=== PATIENT | male | born 1975 | race Caucasian/White ===

== ENCOUNTER 2016-11-01 16:36 | Emergency (ER) | payer SELFPAY ==
[~2016-11-01] VITALS: Ht 170.2 cm; Wt 54.4 kg
[2016-11-01 16:40] VITALS: BP 113/70
[2016-11-01] MEDS ORDERED: IBUPROFEN 400 MG TABLET PO ONE (17:30)
[2016-11-01] MEDS ORDERED: IBUPROFEN 400 MG TABLET ONE (17:40)
== END 2016-11-01 18:45 | disposition home or self-care (01) ==
LOC: ER 16:38
DX: S76.312A Strain of muscle, fascia and tendon of the posterior muscle group at thigh level, left thigh, initial encounter (principal); Y04.0XXA Assault by unarmed brawl or fight, initial encounter; Y92.89 Other specified places as the place of occurrence of the external cause; Y93.89 Activity, other specified; Y99.8 Other external cause status
CPT/HCPCS: 29505; 73503; 73564; 99284; A4606; Z7610; 73502

== ENCOUNTER 2016-11-02 18:20 | Emergency (ER) | payer SELFPAY ==
[~2016-11-02] VITALS: Ht 170.2 cm; Wt 54.4 kg
--- NOTE | 2016-11-02 22:37 | NUR ---
BIBSELF AMBULATORY TO ER BED 9, C/O LEFT LEG PAIN SINCE YESTERDAY. WAS HERE YESTERDAY. PT AOX3 RR EVEN AND UNLABORED. NO SOB NOTD. NAD NOTED. NO NVD AT THIS TIME. PT NOT DIAPHORETIC. PT WITH LEFT KNEE IMMBOBLIZER. PT WAITING FOR MD JIMENEZ.
[2016-11-02] MEDS ORDERED: HYDROCODONE/APAP 10/325MG 1 EA TABLET ONE (22:56)
--- NOTE | 2016-11-02 22:58 | NUR ---
Patient discharged to home in stable condition. Written and verbal after care instructions given. Patient verbalizes understanding of instruction. Patient is ambulatory with steady gait, knee immobilizer on. No further complaints.
[2016-11-02 23:00] VITALS: BP 110/62
[2016-11-02] MEDS ORDERED: HYDROCODONE/APAP 10/325MG 1 EA TABLET PO ONE (23:00)
== END 2016-11-02 23:02 | disposition home or self-care (01) ==
LOC: ER 18:22
DX: S86.912A Strain of unspecified muscle(s) and tendon(s) at lower leg level, left leg, initial encounter (principal); Y04.0XXA Assault by unarmed brawl or fight, initial encounter; Y92.89 Other specified places as the place of occurrence of the external cause; Y93.89 Activity, other specified; Y99.8 Other external cause status
CPT/HCPCS: 29505; 99283; A4606; Z7610

== ENCOUNTER 2016-11-11 00:47 | Emergency (ER) | payer SELFPAY ==
[~2016-11-11] VITALS: Ht 172.7 cm; Wt 59.0 kg
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
[2016-11-11] MEDS ORDERED: ACETAMINOPHEN ES 500 MG TABLET ONE (05:24)
--- NOTE | 2016-11-11 05:29 | NUR ---
Patient discharged to home in stable condition. Written and verbal after care instructions given. Patient verbalizes understanding of instruction. ambulatory with a steady gait. instructed pt not to drive. pt verbalize understanding.
[2016-11-11 05:30] VITALS: BP 112/57
[2016-11-11] MEDS ORDERED: ACETAMINOPHEN 325 MG TABLET PO ONE (05:30)
== END 2016-11-11 05:30 | disposition home or self-care (01) ==
LOC: ER 00:49
DX: S76.312A Strain of muscle, fascia and tendon of the posterior muscle group at thigh level, left thigh, initial encounter (principal); M72.2 Plantar fascial fibromatosis; Y92.89 Other specified places as the place of occurrence of the external cause; Y93.89 Activity, other specified; Y99.8 Other external cause status
CPT/HCPCS: 99283; A4606; Z7610